=== PATIENT | male | born 1955 | race Caucasian/White ===

== ENCOUNTER 2018-03-08 11:26 | Outpatient (REF) | payer BC, SELFPAY ==
[2018-03-08 21:43] LABS: Abs Immature Grans 0.01 k/cumm (0.0-0.09); Absolute Basophil Count 0.04 k/cumm (0.0-0.2); Absolute Eosinophil Count 0.17 k/cumm (0.0-0.7); Absolute Lymphocyte Count 1.91 k/cumm (1.2-3.4); Absolute Monocyte Count 0.49 k/cumm (0.11-0.7); Absolute Neutrophil Count 3.76 k/cumm (1.2-6.7); Basophils % 0.6; Eosinophils % 2.7; HCT 48.8 % (40.0-50.0); HGB 15.2 g/dL (13.5-17.5); Immature Grans % 0.2; Lymphocytes % 29.9; Mean Corp. HGB Concentration 31.1 g/dL (32.0-36.0); Mean Corpuscular Hemoglobin 28.5 pg (27.0-33.0); Mean Corpuscular Volume 91.4 fL (80-95); Mean Platelet Volume 12.1 fL (8.0-11.0); Monocytes % 7.7; Neutrophils % 58.9; Platelet Count 202 x1000/uL (130-400); RBC 5.34 m/cumm (4.50-6.00); RBC Distribution Width 13.9 % (11.8-14.1); White Blood Cell Count 6.38 k/cumm (4.4-10.8)
[2018-03-08 22:11] LABS: ALT 34 U/L (12-78); AST 18 U/L (15-37); Albumin 3.8 g/dL (3.4-5.0); Alkaline Phosphatase 70 U/L (46-116); Anion Gap 6.6 mmol/L (3-11); BUN 18 mg/dL (7-18); Bilirubin, Total 0.4 mg/dL (0.2-1.0); CO2 31.4 mmol/L (21.0-32.0); CREATININE 1.07 mg/dL (0.70-1.30); Chloride 105 mmol/L (98-107); Cholesterol 149 mg/dL (50-200); Glucose 102 mg/dL (70-100); HDL Cholesterol 39 mg/dL (40-60); LDL CHOLESTEROL 97 mg/dL (<100); Potassium 5.2 mmol/L (3.5-5.1); Sodium 143 mmol/L (136-145); TSH (W/Ref FT4) 1.67 uIU/mL (0.358-3.74); Total Protein 7.1 g/dL (6.4-8.2); Triglyceride 121 mg/dL (30-150)
== END 2018-03-08 11:46 ==
LOC: NCHCN 11:26
PROVIDERS: Visit Provider Family Medicine
DX: I25.10 Atherosclerotic heart disease of native coronary artery without angina pectoris (principal); I50.9 Heart failure, unspecified
CPT/HCPCS: 80053; 80061; 83721; 84443; 85025

== ENCOUNTER 2019-07-19 10:19 | Outpatient (REF) | payer MEDICARE, SELFPAY ==
[2019-07-19 21:50] LABS: Hemoglobin A1C 5.9 % (3.8-5.6)
[2019-07-19 21:54] LABS: ALT 37 U/L (16-63); AST 21 U/L (15-37); Albumin 3.8 g/dL (3.4-5.0); Alkaline Phosphatase 64 U/L (46-116); Anion Gap 6.5 mmol/L (3-11); BUN 17 mg/dL (7-18); Bilirubin, Total 0.5 mg/dL (0.2-1.0); CO2 30.5 mmol/L (21.0-32.0); CREATININE 1.02 mg/dL (0.70-1.30); Calculated LDL 78 mg/dL (<100); Chloride 106 mmol/L (98-107); Cholesterol 142 mg/dL (<200); Glucose 100 mg/dL (74-106); HDL Cholesterol 35 mg/dL (40-60); Potassium 4.5 mmol/L (3.5-5.1); Sodium 143 mmol/L (136-145); Total Protein 6.9 g/dL (6.4-8.2); Triglyceride 145 mg/dL (<150)
== END 2019-07-19 10:39 ==
LOC: NCHCN 10:19
PROVIDERS: Visit Provider Nurse Practitioner Family
DX: E78.5 Hyperlipidemia, unspecified (principal); I25.10 Atherosclerotic heart disease of native coronary artery without angina pectoris; R73.09 Other abnormal glucose
CPT/HCPCS: 80053; 80061; 83036

== ENCOUNTER → 2022-04-02 13:33 | Outpatient (CLI) | payer MEDICARE, BC, SELFPAY ==
--- NOTE | 2022-04-02 13:44 | DI.RAD_ITS ---
Exam(s) XR KNEE RT 3V AP,LAT,ROMEO EXAM: XR KNEE RT 3V AP,LAT,ROMEO CLINICAL HISTORY: PAIN IN RT KNEE-M25.561 TECHNIQUE: COMPARISON: No exams were available for comparison FINDINGS: Three views were obtained. There is loss of the cartilaginous joint space of the medial tibiofemoral joint, moderate to severe period otherwise the cartilaginous joint spaces appear fairly well main[place] erick. There appears to be small knee joint effusion. Bones appear intact except for prominent superi or patellar enthesophyte IMPRESSION: Degenerative changes as described above. RADIATION DOSE DELIVERED: Total DLP
== END ==
PROVIDERS: Visit Provider Physician Assistant Medical
DX: M17.11 Unilateral primary osteoarthritis, right knee (principal)
CPT/HCPCS: 73562

== ENCOUNTER → 2022-04-22 03:01 | Outpatient (CLI) | payer MEDICARE, BC, SELFPAY ==
--- NOTE | 2022-04-22 11:15 | DI.US_ITS ---
Exam(s) US SOFT TISSUE EXTREMITY EXAM: US SOFT TISSUE EXTREMITY CLINICAL HISTORY: RT KNEE PAIN, M25.561; EVALUATE FOR BERGER'S CYST. TECHNIQUE: Ultrasound was performed using standard protocol. COMPARISON: No exams were available for comparison FINDINGS: Dedicated ultrasound examination of the popliteal fossa right knee was performed. No evidence of solid mass and no Berger's cyst evident. IMPRESSION: No significant focal ultrasound findings in the right popliteal fossa. DATA REPOSITORY:
== END ==
PROVIDERS: Visit Provider Physician Assistant Medical
DX: M25.561 Pain in right knee (principal)
CPT/HCPCS: 76881

== ENCOUNTER → 2022-05-12 15:56 | Outpatient (BNVA) | payer MEDICARE, BC, SELFPAY | PROVIDERS: Visit Provider Physician Assistant | DX: S89.91XA Unspecified injury of right lower leg, initial encounter (principal); W54.8XXA Other contact with dog, initial encounter; M23.91 Unspecified internal derangement of right knee | CPT/HCPCS: 20610; J1040 ==

== ENCOUNTER 2022-07-22 06:38 | Emergency (ER) | payer MEDICARE, BC, SELFPAY ==
[2022-07-22 06:41] VITALS: BP 168/97; PULSE 82; RESP 24; TEMP 36.5; O2SAT 97
--- NOTE | 2022-07-22 06:54 | ED.GENADUL_ITS ---
Discharge Plan Disposition Condition: Stable Discharge Details Chief Complaint: Sorethroat Primary Care Provider: [facility] ED Provider: Brandon Alas Home Meds and New Rx's Prescriptions: No Action aspirin [Adult Low Dose Aspirin] 81 mg tablet,delayed release (DR/EC) 81 mg PO DAILY ibuprofen 400 mg tablet 400 mg PO Q8H lisinopril 5 mg tablet 5 mg PO DAILY atorvastatin [Lipitor] 40 mg tablet 40 mg PO DAILY Medical Decision Making 66 yo male with hx of htn, hld, who comes in with 1 days of left sided neck pain and swelling. HE saw his dentist yesterday and was put on amoxicillin and was told he likely had a blocked salivary gland. He came here today because he feels the swelling is worse and when he lays flat feels like has dyspnea. He denies difficulty swallowing and during exam he appears well in no distress speaking clearly and swallowing normally. He does have swelling of the left sumandibular area. No restricted neck movements, no erythema or warmth, no visible abscess in the mouth and midline posterior pharynx. Given worsening symptoms despite being on amoxicillin will proceed with imaging to asses for abscess. Will give a dose of dexamethasone as well while imaging pending pt signed out to oncoming provider pending ct results Differential Diagnosis Differential Diagnosis: sialadenitis, abscess HPI General Mode of arrival: ambulatory . Date/Time Provider Initiated Documentation: 07/22/22 06:39 . Limitations to Documentation: no limitations . Information obtained by: patient . History of Present Illness 66 year old M presents to the emergency department with the chief complaint of left neck swelling, described as moderate, Patient started experiencing this day(s) (1) and it has been constant. Patient did receive the following treatments prior to arrival, none Related Data Home Medications Medication Instructions Recorded Confirmed atorvastatin 40 mg tablet (Lipitor) 40 mg PO DAILY 04/29/22 05/14/22 lisinopril 5 mg tablet 5 mg PO DAILY 04/29/22 05/14/22 aspirin 81 mg tablet,delayed 81 mg PO DAILY 05/12/22 05/14/22 release (Adult Low Dose Aspirin) ibuprofen 400 mg tablet 400 mg PO Q8H 05/12/22 05/14/22 Allergies Allergy/AdvReac Type Severity Reaction Status Date / Time No Known Allergies Allergy Verified 04/29/22 11:50 General Stated Complaint: Sorethroat TOY: 4 Review of Systems All systems reviewed & are unremarkable except as noted in HPI and below Constitutional Constitutional: Denies chills ENT Ears, Nose, Mouth, and Throat: Denies change in voice Cardiovascular Cardiovascular: Denies chest pain and Denies dyspnea Respiratory Respiratory: Denies cough and Denies dyspnea Gastrointestinal Gastrointestinal: Denies abdominal pain, Denies nausea and Denies vomiting Musculoskeletal Musculoskeletal: Denies joint swelling Psychiatric Psychiatric: Denies depression PFSH All Active Problems (Updated 05/14/22 @ 06:27 by Emanuel Hill MD) Internal derangement of right knee (Acute) BERENICE (obstructive sleep apnea) (Chronic) CHF (congestive heart failure) (Chronic) Hyperlipidemia (Acute) CAD (coronary artery disease) (Chronic) Medical History Basal cell carcinoma Former smoker Surgical History History of heart artery stent Social History Smoking risk assessment performed?: No Exam Const General: no acute distress Orientation: alert HENID Head: normal to inspection Ears: external ears normal General nose exam: external nose normal Mouth: moist mucous membranes Eyes General: appearance normal, both eyes and all related structures Neck Neck: full ROM, meningismus present and trachea midline Resp Effort & Inspection: normal respiratory effort and able to speak in complete sentences Cardio Rate: regular rate Skin General skin exam: no rashes or lesions noted Neuro General: patient alert and patient oriented x3 Extrem General: normal to inspection Psych Mental Status: mental status grossly normal Course Vital Signs Vital signs: Vital Signs Temperature 36.5 C 07/22/22 06:41 Pulse 82 07/22/22 06:41 Respiratory Rate 24 07/22/22 06:41 Blood Pressure 168/97 H 07/22/22 06:41 Pulse Oximetry 97 07/22/22 06:41 Temperature 36.5 C 07/22/22 06:41 Temperature Source Oral 07/22/22 06:41 Pulse 82 07/22/22 06:41 Respiratory Rate 24 07/22/22 06:41 Blood Pressure 168/97 H 07/22/22 06:41 Pulse Oximetry 97 07/22/22 06:41 Oxygen Delivery Method Room Air 07/22/22 06:41 Oxygen Flow Rate 0 07/22/22 06:41
[2022-07-22 08:07] LABS: COVID-19 PCR Negative (Negative); Influenza A PCR Negative (Negative); Influenza B PCR Negative (Negative); RSV PCR Negative (Negative)
[2022-07-22 08:09] LABS: Source Nasopharynx
[2022-07-22] MEDS: Normal Saline 1,000 ML 1000 ML IV (08:38)
[2022-07-22] MEDS: Dexamethasone 10 MG/ML VIAL IVP (08:38)
[2022-07-22 08:46] LABS: Abs Immature Grans 0.04 10^3/uL (0.0-0.06); Absolute Eosinophil Count 0.07 10^3/uL (0.0-0.7); Absolute Lymphocyte Count 1.31 10^3/uL (1.2-3.4); Absolute Monocyte Count 0.93 10^3/uL (0.1-0.8); Basophils % 0.3; Eosinophils % 0.6; HCT 43.5 % (40.0-50.0); Immature Grans % 0.3; Lymphocytes % 11.3; MCHC 32.2 % (32.0-36.0); MCV 90 fL (80-95); MPV 11.1 fL (8.0-11.0); Neutrophils % 79.5; Platelet Count 213 10^3/uL (130-400); RBC 4.82 10^6/uL (4.36-5.78); RDW 13.2 % (11.8-14.1); RDW-SD 43.1 fL; WBC 11.57 10^3/uL (4.4-10.8)
[2022-07-22 08:49] LABS: Absolute Basophil Count 0.03 10^3/uL (0.0-0.2)
[2022-07-22 09:06] LABS: ALT 23 U/L (16-63); AST 17 U/L (15-37); Albumin 3.9 g/dL (3.4-5.0); Alkaline Phosphatase 66 U/L (46-116); Anion Gap 5.9 mmol/L (3-11); BUN 16 mg/dL (7-18); Bilirubin, Total 0.7 mg/dL (0.2-1.0); CO2 29.1 mmol/L (21.0-32.0); Calcium 9.1 mg/dL (8.5-10.1); Chloride 105 mmol/L (98-107); Estimated GFR 81.98 (mL/min/1.73m2); Glucose 114 mg/dL (74-106); Potassium 4.1 mmol/L (3.5-5.1); Sodium 140 mmol/L (136-145); Total Protein 7.5 g/dL (6.4-8.2)
[2022-07-22] MEDS: Omnipaque 350 MG/ML 500 ML BTL-Imaging package IJ (09:30)
[2022-07-22] MEDS: Normal Saline - Diluent 50 ML VIAL IJ (09:30)
--- NOTE | 2022-07-22 09:40 | DI.CT_ITS ---
Exam(s) CT NECK W EXAM: CT NECK W INDICATION: left sided neck swelling/pain. COMPARISON: No exams were available for comparison TECHNIQUE: FINDINGS: VISUALIZED PARANASAL SINUSES: Mild mucosal thickening in the maxillary sinuses. No fluid levels. NASOPHARYNX: Unremarkable ORODENTAL: No obvious abnormality OROPHARYNX: x there is a peripherally enhancing abscess in left side of the oropharynx-tonsillar erik on. This measures approximately 2 x 2 cm. Uvula appears somewhat swollen. HYPOPHARYNX: Unremarkable. Valleculae and epiglottis and aryepiglottic folds appear normal. VOCAL CORDS: Unremarkable. No masses evident. Subglottic airway appears unremarkable. THYROID GLAND: Unremarkable. Normal size and no obvious nodules. SALIVARY GLANDS: Unremarkable. No significant findings in the parotid and submandibular glands. LYMPH NODES: There few slightly enlarged lymph nodes in left side of the neck. OTHER: VISUALIZED LUNG APICES: No significant findings. IMPRESSION: 1. There is a ring enhancing finding in the region of left pharyngeal tonsil consistent with tonsill ar abscess. There is some surrounding soft tissue swelling and there few slightly enlarged lymph nod es in the upper left neck. Report called by myself to ER provider. RADIATION DOSE DELIVERED: 532.53mGy.cm Total DLP 532.53mGy.cm Total DLP DATA REPOSITORY: All CT scans at this facility are submitted to the National Radiology Data Registry (NRDR) Dose Index Registry (DIR) with the [employer] ([employer]). RADIATION OPTIMIZATION: All CT scans at this facility use at least one of these dose optimization te chniques: automated exposure control; mA and/or kV adjustment per patient size (includes targeted exa ms where dose is matched to clinical indication); or iterative reconstruction.
--- NOTE | 2022-07-22 10:09 | W.EDPROG ---
Date of service: 07/22/22 Time of Service: 10:09 Medical Decision Making I assumed care of this 66-year-old gentleman from my colleague Dr. Alas, please see his initial HPI and examination. At time of signout awaiting laboratory values and a CT of the neck for further evaluation of his discomfort. White blood cell count of 11.57, absolute neutrophils 9.20, electrolytes unremarkable, glucose 114, flu, RSV, COVID-negative. CT imaging reveals a left-sided tonsillar abscess. Case discussed with Dr. Patel, ENT. Plan to provide IV Unasyn. Dr. Patel at bedside, personally evaluated the patient. Patient appears well, nontoxic, no evidence of trismus or airway compromise. Managing secretions without difficulty. Plan to provide p.o. Augmentin and have the patient return to the ER in 24 hours for reevaluation and if worsening then likely will need to involve ENT once again for potential I&D. Patient and family are comfortable with this plan. Standard discharge and return precautions were provided. Patient understands, is agreeable to this plan, and has no additional questions or concerns upon discharge. This documentation was generated using [employer] system, please disregard any oddities of phrase or misspellings. Medical Records Medical records reviewed: Yes I reviewed the patient's medical records. Imaging Data Radiologic Study: Attestation: I personally reviewed and interpreted this imaging study as follows: Imaging: CT Scan Radiologist's impression: Exam(s) CT NECK W EXAM: CT NECK W INDICATION: left sided neck swelling/pain. COMPARISON: No exams were available for comparison TECHNIQUE: FINDINGS: VISUALIZED PARANASAL SINUSES: Mild mucosal thickening in the maxillary sinuses. No fluid levels. NASOPHARYNX: Unremarkable ORODENTAL: No obvious abnormality OROPHARYNX: x there is a peripherally enhancing abscess in left side of the oropharynx-tonsillar region. This measures approximately 2 x 2 cm. Uvula appears somewhat swollen. HYPOPHARYNX: Unremarkable. Valleculae and epiglottis and aryepiglottic folds appear normal. VOCAL CORDS: Unremarkable. No masses evident. Subglottic airway appears unremarkable. THYROID GLAND: Unremarkable. Normal size and no obvious nodules. SALIVARY GLANDS: Unremarkable. No significant findings in the parotid and submandibular glands. LYMPH NODES: There few slightly enlarged lymph nodes in left side of the neck. OTHER: VISUALIZED LUNG APICES: No significant findings. IMPRESSION: 1. There is a ring enhancing finding in the region of left pharyngeal tonsil consistent with tonsillar abscess. There is some surrounding soft tissue swelling and there few slightly enlarged lymph nodes in the upper left neck. Lab Data Lab results reviewed: Yes I reviewed the patient's lab results. Labs: Laboratory Tests Range/Units 07/22/22 07/22/22 07/22/22 07:22 08:35 08:35 WBC (4.4-10.8) 10^3/uL 11.57 H RBC (4.36-5.78) 10^6/uL 4.82 Hgb (13.5-17.5) g/dL 14.0 Hct (40.0-50.0) % 43.5 MCV (80-95) fL 90 MCH (27.0-33.0) pg 29.0 MCHC (32.0-36.0) % 32.2 RDW (11.8-14.1) % 13.2 Plt Count (130-400) 10^3/uL 213 MPV (8.0-11.0) fL 11.1 H Immature Gran % 0.3 Neutrophils % 79.5 Lymphocytes % 11.3 Monocytes % 8.0 Eosinophils % 0.6 Basophils % 0.3 Nucleated RBC % (0.0-0.3) % 0.0 Absolute Neutrophils (1.2-6.7) 10^3/uL 9.20 H Absolute Lymphocytes (1.2-3.4) 10^3/uL 1.31 Absolute Monocytes (0.1-0.8) 10^3/uL 0.93 H Absolute Eosinophils (0.0-0.7) 10^3/uL 0.07 Absolute Basophils (0.0-0.2) 10^3/uL 0.03 Sodium (136-145) mmol/L 140 Potassium (3.5-5.1) mmol/L 4.1 Chloride (98-107) mmol/L 105 Carbon Dioxide (21.0-32.0) mmol/L 29.1 Anion Gap (3-11) mmol/L 5.9 BUN (7-18) mg/dL 16 Creatinine (0.70-1.30) mg/dL 1.0 Est GFR (CKD-EPI 2020) (mL/min/1.73m2) 81.98 Glucose (74-106) mg/dL 114 H Calcium (8.5-10.1) mg/dL 9.1 Total Bilirubin (0.2-1.0) mg/dL 0.7 AST (15-37) U/L 17 ALT (16-63) U/L 23 Alkaline Phosphatase (46-116) U/L 66 Total Protein (6.4-8.2) g/dL 7.5 Albumin (3.4-5.0) g/dL 3.9 COVID-19 Source Nasopharynx SARS-CoV-2 (PCR) (Negative) Negative Influenza Type A (PCR) (Negative) Negative Influenza Type B (PCR) (Negative) Negative RSV (PCR) (Negative) Negative Exam Const General: cooperative, healthy appearing, comfortable and no acute distress Orientation: alert, awake and oriented x3 HENMT Head: normal to inspection, normocephalic and atraumatic Face and sinus: normal facial exam Mouth: oral mucosae normal and moist mucous membranes Teeth and gingiva: dentition normal Other: Left posterior oropharynx, soft palate with ecchymosis, erythema, swelling but no obvious pointing abscess or uvula deviation. No trismus. Airway is patent. Patient speaks in full sentences and manages secretions without difficulty. Eyes General: appearance normal, both eyes and all related structures Conjunctivae: conjunctivae normal Neck Neck: normal visual inspection, full ROM, no meningeal signs, trachea midline, supple, lymphadenopathy left anterior cervical and tender Resp Effort & Inspection: normal respiratory effort and able to speak in complete sentences Auscultation: clear to auscultation bilaterally Cardio Rate: regular rate Rhythm: regular rhythm Skin General skin exam: no rashes or lesions noted Neuro General: patient alert, patient awake, moves all extremities and no focal motor deficits Sensory Exam: no sensory deficits noted Psych Appearance: grossly normal Mental Status: mental status grossly normal Sign Out Sign Out Data: Sign Out Comment: left sided upper neck/submandibular swelling, started on amoxicillin yesterday, pending labs and ct neck Last updated by Brandon Alas MD at 07/22/22 07:13 Discharge Plan Disposition Patient Disposition: Home Condition: Stable Discharge Details Clinical Impression: Abscess of tonsil Primary Care Provider: [facility] ED Provider: Salazar Parker Soldier Meds and New Rx's Prescriptions: New amoxicillin-pot clavulanate 875-125 mg tablet 1 tab PO BID Qty: 20 0RF Continued aspirin [Adult Low Dose Aspirin] 81 mg tablet,delayed release (DR/EC) 81 mg PO DAILY ibuprofen 400 mg tablet 400 mg PO Q8H lisinopril 5 mg tablet 5 mg PO DAILY atorvastatin [Lipitor] 40 mg tablet 40 mg PO DAILY Discharge Instructions Instructions: Peritonsillar Abscess (ED) Additional Instructions: Discontinue amoxicillin and begin taking Augmentin as directed. [id number] Tylenol and/or Motrin as directed for discomfort. Salt water gargles as tolerated. Please watch for new or worsening symptoms and return to the ER as needed. Dr. Patel personally evaluated you here in the ER, would like you to return to the ER in 24 hours for reevaluation. If symptoms are worsening then likely will need to involve ENT once again for I&D. He is hopeful this will resolve with antibiotics and not need any procedure. Referrals: Julio Patel MD [ [facility] STAFF PHYSICIAN] -
[2022-07-22 10:18] VITALS: BP 135/85; PULSE 82; RESP 18; TEMP 35.9; O2SAT 98
[2022-07-22] MEDS: AMPICILLIN/SULBACTAM 3 GM in Normal Saline 100 ML IVPB (11:13)
[2022-07-22 12:04] VITALS: BP 146/82; PULSE 75; RESP 18; TEMP 36.4; O2SAT 98
== END 2022-07-22 12:08 | disposition home or self-care (01) ==
PROVIDERS: Emergency Medicine; Emergency Provider Physician Assistant
DX: J36 Peritonsillar abscess (principal); I50.9 Heart failure, unspecified; Z20.822 Contact with and (suspected) exposure to COVID-19
CPT/HCPCS: 36415; 70491; 80053; 87637; 96361; 96365; 96375; 99284; 85025; J0295; J1100

== ENCOUNTER 2022-07-23 08:37 | Emergency (ER) | payer MEDICARE, BC, SELFPAY ==
[2022-07-23 08:40] VITALS: BP 139/75; PULSE 77; RESP 18; TEMP 36.3; O2SAT 98
--- NOTE | 2022-07-23 09:20 | ED.GENADUL_ITS ---
Discharge Plan Disposition Patient Disposition: Home Condition: Stable Discharge Details Clinical Impression: Abscess of tonsil Primary Care Provider: [facility] ED Provider: Salazar Parker Home Meds and New Rx's Prescriptions: Continued aspirin [Adult Low Dose Aspirin] 81 mg tablet,delayed release (DR/EC) 81 mg PO DAILY ibuprofen 400 mg tablet 400 mg PO Q8H lisinopril 5 mg tablet 5 mg PO DAILY atorvastatin [Lipitor] 40 mg tablet 40 mg PO DAILY amoxicillin-pot clavulanate 875-125 mg tablet 1 tab PO BID Qty: 20 0RF Discharge Instructions Instructions: Peritonsillar Abscess (ED) Additional Instructions: At this time your symptoms do not appear to be any worse. I spoke with ENT, Dr. Patel once again. He recommends that you continue your antibiotics as well as continue your CPAP at night. [id number] medications such as Tylenol and/or Motrin. Salt water gargles and spits as tolerated. Please watch for new or worsening symptoms and return to the ER for any concerns. Lastly, he would like to see you in his office in the next 1-2 weeks, I have placed you on the ENT list to help expedite this process, you may call their office later today or tomorrow to set this up. Referrals: Julio Patel MD [ [facility] STAFF PHYSICIAN] - Medical Decision Making 66-year-old gentleman who was seen in the ER yesterday, evaluated by ENT, initiated IV Unasyn and p.o. Augmentin. Early tonsillar abscess versus phlegmon with localized edema. Patient received IV steroids prior to my excepting care of the patient yesterday. Dr. Patel, ENT, evaluated the patient, felt as though discharge home was appropriate and recheck in 24 hours. Patient presents now for reevaluation reporting subjective fever has resolved, pain has improved, overall feeling better but did notice additional episodes of difficulty sleeping, apneic episodes with his CPAP. Clinically he appears well, nontoxic, afebrile, no evidence of trismus, airway is patent. Lungs are clear to auscultation, O2 sat 98% on room air. No obvious pointing abscess. Examination is not significantly changed when compared to yesterday. Case discussed with ENT, Dr. Patel. He does not believe that an I&D is necessary. Recommends continuing Augmentin oral therapy as well as CPAP at night. We will follow the patient in his office in the next 1-2 weeks, ENT referral placed. Patient to return to the ER for new or worsening symptoms with the understanding that worsening abscess could develop which may require procedure. Strict discharge and return precautions were provided. Patient understands, is agreeable to this plan, and has no additional questions or concerns upon discharge. This documentation was generated using [employer] dictation system, please disregard any oddities of phrase or misspellings. Medical Records Medical records reviewed: Yes I reviewed the patient's medical records. HPI General Mode of arrival: ambulatory . Date/Time Provider Initiated Documentation: 07/23/22 08:58 . Limitations to Documentation: no limitations . Information obtained by: patient . HPI Narrative: This is a 66-year-old gentleman with a Diana history of CAD, hyperlipidemia, CHF, sleep apnea, wears CPAP at night, was seen in the ER yesterday for evaluation of potential tonsillar abscess, per ENT consultation, recommended reevaluation in 24 hours. Overall patient reports that his symptoms have improved. He reports that he no longer subjectively has a fever and he feels like his overall discomfort in his throat is much improved. He has no difficulty speaking, breathing, managing his own secretions. He does state that overnight while using his CPAP he feels as though he is having more apneic episodes, this was confirmed by his CPAP machine data. He was given IV Unasyn yesterday and initiated on Augmentin. Related Data Home Medications Medication Instructions Recorded Confirmed atorvastatin 40 mg tablet (Lipitor) 40 mg PO DAILY 04/29/22 07/23/22 lisinopril 5 mg tablet 5 mg PO DAILY 04/29/22 07/23/22 aspirin 81 mg tablet,delayed 81 mg PO DAILY 05/12/22 07/23/22 release (Adult Low Dose Aspirin) ibuprofen 400 mg tablet 400 mg PO Q8H 05/12/22 07/23/22 amoxicillin 875 mg-potassium 1 tab PO BID #20 tabs 07/22/22 07/23/22 clavulanate 125 mg tablet Previous Rx's Medication Instructions Recorded amoxicillin 875 mg-potassium 1 tab PO BID #20 tabs 07/22/22 clavulanate 125 mg tablet Allergies Allergy/AdvReac Type Severity Reaction Status Date / Time No Known Allergies Allergy Verified 07/23/22 08:45 General Stated Complaint: Recheck TOY: 3 Review of Systems Constitutional Constitutional: Denies fever(s) and Denies weakness ENT Ears, Nose, Mouth, and Throat: Denies neck pain and Reports throat swelling Cardiovascular Cardiovascular: Denies chest pain and Denies dyspnea Respiratory Respiratory: Denies cough and Denies dyspnea Musculoskeletal Musculoskeletal: Denies neck pain Integumentary/Breasts Skin/Breast: Denies rash Neurologic Neurologic: Denies weakness Allergic/Immunologic Allergic/Immunologic: Reports throat swelling PFSH All Active Problems Abscess of tonsil (Acute) Internal derangement of right knee (Acute) BERENICE (obstructive sleep apnea) (Chronic) CHF (congestive heart failure) (Chronic) Hyperlipidemia (Acute) CAD (coronary artery disease) (Chronic) Medical History Basal cell carcinoma Former smoker Surgical History History of heart artery stent Social History Smoking/Tobacco Use Status: Never Smoking risk assessment performed?: Yes Alcohol Intake: current Alcohol Intake frequency: holidays/special occasions only Drug use: Never Substance use type: does not use Do you feel safe at home: Yes Do you feel safe in your relationship?: Yes Exam Const General: cooperative, healthy appearing, comfortable and no acute distress Orientation: alert, awake and oriented x3 HENMT Head: normal to inspection, normocephalic and atraumatic Face and sinus: normal facial exam Mouth: oral mucosae normal and moist mucous membranes Other: Left-sided oropharynx, soft palate with minimal erythema and fullness as well as ecchymosis. There is no uvular midline shift or airway compromise. No evidence of pointing abscess. No trismus Eyes General: appearance normal, both eyes and all related structures Conjunctivae: conjunctivae normal Neck Neck: normal visual inspection, full ROM, no meningeal signs, trachea midline, supple, lymphadenopathy left anterior cervical and tender (Minimal left anterior lymphadenopathy) Resp Effort & Inspection: normal respiratory effort and able to speak in complete sentences Auscultation: clear to auscultation bilaterally Cardio Rate: regular rate Rhythm: regular rhythm Skin General skin exam: no rashes or lesions noted Neuro General: patient alert, patient awake, moves all extremities and no focal motor deficits Cognition: normal cognition Speech: speech normal Gait: normal gait Sensory Exam: no sensory deficits noted Psych Appearance: grossly normal Mental Status: mental status grossly normal Course Vital Signs Vital signs: Vital Signs Temperature 36.3 C L 07/23/22 08:40 Pulse 77 07/23/22 08:40 Respiratory Rate 18 07/23/22 08:40 Blood Pressure 139/75 07/23/22 08:40 Pulse Oximetry 98 07/23/22 08:40 Temperature 36.3 C L 07/23/22 08:40 Temperature Source Tympanic 07/23/22 08:40 Pulse 77 07/23/22 08:40 Respiratory Rate 18 07/23/22 08:40 Respiratory Effort Normal 07/23/22 08:43 Blood Pressure 139/75 07/23/22 08:40 Blood Pressure Position Sitting 07/23/22 08:40 Pulse Oximetry 98 07/23/22 08:40 Oxygen Delivery Method Room Air 07/23/22 08:40 Oxygen Flow Rate 0 07/23/22 08:40 Pain Level 1 07/23/22 08:40
[2022-07-23 09:56] VITALS: BP 124/80; PULSE 73; RESP 16; TEMP 36.7; O2SAT 97
--- NOTE | 2022-07-23 15:33 | NUR.NOTE ---
Nursing Note: Referral faxed to [facility] ENT for follow up for abscess in 2 weeks.
== END 2022-07-23 09:57 | disposition home or self-care (01) ==
PROVIDERS: Emergency Provider Physician Assistant
DX: J36 Peritonsillar abscess (principal)
CPT/HCPCS: 99281; 99283

== ENCOUNTER 2022-07-23 20:36 | Emergency (ER) | payer MEDICARE, BC, SELFPAY ==
[2022-07-23 20:59] VITALS: BP 141/95; PULSE 91; RESP 16; TEMP 36.8; O2SAT 95
--- NOTE | 2022-07-23 21:15 | DI.CT_ITS ---
Exam(s) CT NECK W EXAM: CT NECK W INDICATION: L swelling/pain. COMPARISON: CT CT NECK W from 07/22/2022 TECHNIQUE: IV contrast: Omnipaque-351 hemorrhage or mL intravenous FINDINGS: VISUALIZED PARANASAL SINUSES: Multilevel maxillary polyps or post inflammatory retention cysts. No a ssociated fluid level. Similar finding in the right sphenoid sinus. There is opacification of all o f the right mastoid air cells. Left mastoid air cells are clear. NASOPHARYNX: Unremarkable ORODENTAL: Unremarkable. OROPHARYNX: Previously described abscess in left palatine tonsil has increased in size and there is a lso increasing abnormal swelling right of center in the oropharynx also now evident. Also increasing retropharyngeal tissue swelling. Also some tissue swelling-edema also evident in the nasopharynx, u vula and extending caudally from the oropharynx into the left hypopharynx/puriform sinus region. Als o some extension of edema to involve the left side of the epiglottis and upper left aryepiglottic fol d region. HYPOPHARYNX: Abnormal, as above. VOCAL CORDS: Unremarkable. No masses evident. Subglottic airway appears unremarkable. THYROID GLAND: Unremarkable. Normal size and no obvious nodules. SALIVARY GLANDS: There is some mild sub platysmal fat streaking on the left side, lateral to the left submandibular gland. LYMPH NODES: Mildly enlarged left-sided lymph nodes again noted. OTHER: VISUALIZED LUNG APICES: No significant findings. IMPRESSION: 1. Compared to the CT scan 1 day prior there is now further deterioration with increasing left palat ine tonsil swelling/abscess as well as increasing soft tissue swelling both sides of the oropharynx a nd also involving the hypopharynx as described above. Also some swelling in the nasopharynx tissues. ENT consult recommended. 2. Some streaking in the fat lateral to the left submandibular gland is noted. 3. Paranasal sinus findings as described above and there is also opacification of the mastoid air ce lls on the right side. 4. Mild lymphadenopathy in left side of the neck again noted. First read by [facility]. RADIATION DOSE DELIVERED: 512.02mGy.cm Total DLP 512.02mGy.cm Total DLP DATA REPOSITORY: All CT scans at this facility are submitted to the National Radiology Data Registry (NRDR) Dose Index Registry (DIR) with the [employer] ([employer]). RADIATION OPTIMIZATION: All CT scans at this facility use at least one of these dose optimization te chniques: automated exposure control; mA and/or kV adjustment per patient size (includes targeted exa ms where dose is matched to clinical indication); or iterative reconstruction.
--- NOTE | 2022-07-23 21:31 | ED.GENADUL_ITS ---
Discharge Plan Disposition Patient Disposition: Home Condition: Improving Discharge Details Clinical Impression: Peritonsillar abscess Primary Care Provider: [facility] ED Provider: Adan Rushing Home Meds and New Rx's Prescriptions: Continued aspirin [Adult Low Dose Aspirin] 81 mg tablet,delayed release (DR/EC) 81 mg PO DAILY ibuprofen 400 mg tablet 400 mg PO Q8H lisinopril 5 mg tablet 5 mg PO DAILY atorvastatin [Lipitor] 40 mg tablet 40 mg PO DAILY amoxicillin-pot clavulanate 875-125 mg tablet 1 tab PO BID Qty: 20 0RF Discharge Instructions Instructions: Peritonsillar Abscess (ED) Additional Instructions: Maintain your established follow-up in otolaryngology with Dr. Patel. Continue your antibiotics, next dose tomorrow morning. Small, frequent sips of fluids to maintain hydration. Tylenol and/or ibuprofen as needed for pain. Return if you have difficulty breathing, swallowing, or any other acute concerns. Referrals: Julio Patel MD [[facility] STAFF PHYSICIAN] - Medical Decision Making 66-year-old male who is initially seen on July 22 for a left peritonsillar abscess. He was evaluated by Dr. Patel from otolaryngology. Patient received steroids and was placed on antibiotics. He had a planned recheck yesterday was feeling improved. Today he felt increased swelling and discomfort in the left neck, some hoarseness of voice. He returns now for evaluation of mild nausea that he had subjective fever and chills at home. Upon arrival he is alert, well-appearing, no drooling. He does have evidence of a left peritonsillar abscess. Given the patient's progression of illness, potential need for needle aspiration/drainage, IV access was established, he was given steroids, fluids, acetaminophen and referred for laboratory and CT imaging. Labs showed a white count of 12.9, hematocrit 42, platelets 204. Chemistries are unremarkable. CT images reveal some progression of the known peritonsillar abscess, now measuring approximately 12 x 22 x 30 mm. Patient was consented as to the risks and benefits of attempted needle aspiration. Used anesthetized with lidocaine and 5 cc of purulent material were aspirated with an 18-gauge needle. Patient tolerated procedure well. Fluid was sent for culture. He was given Unasyn and observed in the emergency department. HPI General Mode of arrival: ambulatory . Date/Time Provider Initiated Documentation: 07/23/22 21:07 . Limitations to Documentation: no limitations . Information obtained by: patient . History of Present Illness 66 year old M presents to the emergency department with the chief complaint of Left throat swelling, on antibiotics, described as moderate, Quality is described as dull, and is localized to the neck and left. Patient reports no radiation. Patient started experiencing this day(s) and it has been intermittent. No relieving factors improve symptom(s), No exacerbating factors reported . Patient notes fever/chills; denies shortness of breath. Patient did receive the following treatments prior to arrival, other (Antibiotics) Related Data Home Medications Medication Instructions Recorded Confirmed atorvastatin 40 mg tablet (Lipitor) 40 mg PO DAILY 04/29/22 07/23/22 lisinopril 5 mg tablet 5 mg PO DAILY 04/29/22 07/23/22 aspirin 81 mg tablet,delayed 81 mg PO DAILY 05/12/22 07/23/22 release (Adult Low Dose Aspirin) ibuprofen 400 mg tablet 400 mg PO Q8H 05/12/22 07/23/22 amoxicillin 875 mg-potassium 1 tab PO BID #20 tabs 07/22/22 07/23/22 clavulanate 125 mg tablet Previous Rx's Medication Instructions Recorded amoxicillin 875 mg-potassium 1 tab PO BID #20 tabs 07/22/22 clavulanate 125 mg tablet Allergies Allergy/AdvReac Type Severity Reaction Status Date / Time No Known Allergies Allergy Verified 07/23/22 08:45 General Stated Complaint: Fever TOY: 3 Review of Systems Narrative: No drooling. Voice has become slightly worse., No difficulty breathing. 7 systems were reviewed and otherwise negative [facility] All Active Problems (Updated 07/24/22 @ 00:21 by Adan Rushing MD) Abscess of tonsil (Acute) Peritonsillar abscess (Acute) Internal derangement of right knee (Acute) BERENICE (obstructive sleep apnea) (Chronic) CHF (congestive heart failure) (Chronic) Hyperlipidemia (Acute) CAD (coronary artery disease) (Chronic) Medical History Basal cell carcinoma Former smoker Surgical History History of heart artery stent Social History Smoking/Tobacco Use Status: Never Smoking risk assessment performed?: Yes Alcohol Intake: current Alcohol Intake frequency: holidays/special occasions only Drug use: Never Substance use type: does not use Do you feel safe at home: Yes Do you feel safe in your relationship?: Yes Exam Narrative Exam Narrative: GEN: awake, alert, oriented 3. Pleasant, well groomed, interactive. HEAD: Normocephalic, atraumatic ENT: Mucous membranes moist, oropharynx with left peritonsillar edema and prominence, External ear exam unremarkable EYES: PERRL, EOMI NECK: Supple, full ROM, positive CLAUDIA, no menigismus CHEST/RESP: Nontender, clear to auscultation bilateral, no wheeze/rhonchi/rales CARDIOVASCULAR: RRR, no murmur, rub salima. 2+ Rad pulse bilateral EXT: Full ROM, no edema, no rash Neuro: Grossly normal neurologic exam, conversant, interactive. Psych: Speech fluent, thoughts congruent, affect normal Course Vital Signs Vital signs: Vital Signs Temperature 36.8 C 07/23/22 20:59 Pulse 91 H 07/23/22 20:59 Respiratory Rate 16 07/23/22 20:59 Blood Pressure 141/95 H 07/23/22 20:59 Pulse Oximetry 95 07/23/22 20:59 Temperature 36.8 C 07/23/22 20:59 Temperature Source Tympanic 07/23/22 20:59 Pulse 91 H 07/23/22 20:59 Respiratory Rate 16 07/23/22 20:59 Respiratory Effort Normal, Non-Labored 07/23/22 21:06 Blood Pressure 141/95 H 07/23/22 20:59 Blood Pressure Position Sitting 07/23/22 20:59 Pulse Oximetry 95 07/23/22 20:59 Oxygen Delivery Method Room Air 07/23/22 20:59 Oxygen Flow Rate 0 07/23/22 20:59 Pain Level 2 07/23/22 20:59 Procedures Abscess I/D Site: Other (Left. ) Side (if applicable): Left Local Anesthetic: Lidocaine 1% Amount of anesthesia used (mL): 2 Technique: Needle Aspiration Amount of fluid expressed (mL): 5
[2022-07-23] MEDS: Dexamethasone 10 MG/ML VIAL IVP (21:35)
[2022-07-23] MEDS: ACETAMINOPHEN 1,000 MG/100 ML BTL 400 MG IVPB (21:35)
[2022-07-23] MEDS: Normal Saline 1,000 ML 1000 ML IV (21:35)
[2022-07-23 21:50] LABS: Abs Immature Grans 0.05 10^3/uL (0.0-0.06); Absolute Basophil Count 0.03 10^3/uL (0.0-0.2); Absolute Eosinophil Count 0.03 10^3/uL (0.0-0.7); Absolute Lymphocyte Count 1.19 10^3/uL (1.2-3.4); Absolute Monocyte Count 1.08 10^3/uL (0.1-0.8); Basophils % 0.2; Eosinophils % 0.2; HCT 42.5 % (40.0-50.0); HGB 13.7 g/dL (13.5-17.5); Immature Grans % 0.4; Lactate 0.8 mmol/L (0.6-1.4); Lymphocytes % 9.2; MCH 29.2 pg (27.0-33.0); MCHC 32.2 % (32.0-36.0); MCV 91 fL (80-95); Monocytes % 8.3; Neutrophils % 81.7; Platelet Count 204 10^3/uL (130-400); RBC 4.69 10^6/uL (4.36-5.78); RDW 13.4 % (11.8-14.1); RDW-SD 44.6 fL; WBC 12.98 10^3/uL (4.4-10.8)
[2022-07-23 22:01] LABS: Anion Gap 9.6 mmol/L (3-11); BUN 15 mg/dL (7-18); CO2 28.4 mmol/L (21.0-32.0); CREATININE 1.1 mg/dL (0.70-1.30); Calcium 9.2 mg/dL (8.5-10.1); Chloride 104 mmol/L (98-107); Estimated GFR 73.12 (mL/min/1.73m2); Glucose 133 mg/dL (74-106); Potassium 3.9 mmol/L (3.5-5.1); Sodium 142 mmol/L (136-145)
[2022-07-23] MEDS: Normal Saline - Diluent 50 ML VIAL IJ (22:34)
[2022-07-23] MEDS: Normal Saline Flush 10 ML SYR IVP (22:35)
[2022-07-23] MEDS: Omnipaque 350 MG/ML 100 ML BTL IJ (22:35)
--- NOTE | 2022-07-23 23:15 | DI.VRAD_ITS ---
PROCEDURE INFORMATION: Exam: CT Neck With Contrast Exam date and time: 07/23/2022 10:17 PM Age: 66 years old Clinical indication: Abscess, tonsil TECHNIQUE: Imaging protocol: Computed tomography of the neck with contrast. Contrast material: OMNIPAQUE 350; Contrast volume: 100 ml; Contrast route: INTRAVENOUS (IV); COMPARISON: CT NECK W 07/22/2022 9:21 AM FINDINGS: Paranasal sinuses: Multiple nodular structures of the paranasal sinuses may represent mucous retention cysts or polyps. Pharynx: Increased size of the left palatine tonsil as compared to the prior examination. The hypodense collection within the left palatine tonsil is also increased in the interval, measuring 12 x 22 x 30 mm (series 6, image 321 and series 4, image 26). As opposed to the description on the prior examination, this appears ill-defined on the current study without a clear enhancing rim. There is moderate to severe narrowing of the nasopharyngeal airway and moderate narrowing of the oropharyngeal airway. Mucosal edema on the subh-[id number]-tmyy-right involving the nasopharynx, uvula, and oropharynx extending to the left hypopharynx and piriform sinus is increased from the prior examination. Larynx: There is extension of edema to the left epiglottis and glossoepiglottic fold and to the superior margin of the left aryepiglottic fold. Prevertebral and retropharyngeal spaces: Increased prominence of retropharyngeal edema. No retropharyngeal abscess is identified. Salivary glands: Normal. Glands are normal in size. Thyroid: Normal. No enlarged or calcified nodules. Lymph nodes: Vwuu-pakerke-updh-right upper cervical lymphadenopathy is grossly unchanged. Trachea: Visualized trachea is unremarkable. Lungs: Unremarkable as visualized. Bones/joints: Degenerative changes of the cervical spine, with severe spinal canal stenosis at C5-C6 and C6-C7 associated with moderate to severe neural foraminal narrowing. Soft tissues: Left parapharyngeal fat reticular changes, extending to the lateral left lower face and upper neck, is increased as compared to the prior examination with mild thickening of the left platysma muscle. IMPRESSION: 1. Increasing size of hypodense collection of the left palatine tonsil, consistent with organizing phlegmon or early abscess development, with increased surrounding soft tissue swelling extending through the nasopharynx and oropharynx to the right hypopharynx as well as within the deep and superficial soft tissues consistent with infectious or inflammatory change. 2. Increasing prominence of retropharyngeal edema, likely reactive. No evidence of retropharyngeal abscess. 3. Progressive narrowing of the nasopharyngeal and oropharyngeal airway as compared to the prior examination. 4. Severe spinal canal stenosis at C5-C6 and C6-C7. If symptomatic, nonemergent MRI should be considered for further evaluation. Dictated and Authenticated by: Nathen Renteria MD. Ordering:VITA Arellano MD
[2022-07-24] MEDS: AMPICILLIN/SULBACTAM 3 GM in Normal Saline 100 ML IVPB (00:01)
[2022-07-24 00:59] VITALS: BP 131/72; PULSE 73; RESP 18; TEMP 36.6; O2SAT 96
--- NOTE | 2022-07-31 09:55 | NUR.NOTE ---
Nursing Note: Accessed chart to look up whether or not on antibiotic.
== END 2022-07-24 01:02 | disposition home or self-care (01) ==
PROVIDERS: Emergency Provider Emergency Medicine
DX: J36 Peritonsillar abscess (principal); Z79.82 Long term (current) use of aspirin; K12.2 Cellulitis and abscess of mouth
CPT/HCPCS: 10160; 70491; 80048; 87077; 96361; 96365; 96375; 99281; 99285; 83605; 85025; 87070; 87205; 99283; 99284; J0131; J0295; J1100; J3490

== ENCOUNTER 2022-08-12 00:22 | Emergency (ER) | payer MEDICARE, BC, SELFPAY ==
[2022-08-12 00:26] VITALS: BP 160/89; PULSE 73; RESP 18; TEMP 36.3; O2SAT 97
--- NOTE | 2022-08-12 00:50 | ED.GENADUL_ITS ---
Discharge Plan Disposition Patient Disposition: Home Condition: Good Discharge Details Clinical Impression: Pain in throat Primary Care Provider: [facility] ED Provider: Babak Alvarado Home Meds and New Rx's Prescriptions: New loratadine 10 mg capsule 10 mg PO DAILY Qty: 10 0RF Continued aspirin [Adult Low Dose Aspirin] 81 mg tablet,delayed release (DR/EC) 81 mg PO DAILY ibuprofen 400 mg tablet 400 mg PO Q8H lisinopril 5 mg tablet 5 mg PO DAILY atorvastatin [Lipitor] 40 mg tablet 40 mg PO DAILY Discontinued amoxicillin-pot clavulanate 875-125 mg tablet 1 tab PO BID Qty: 20 0RF Discharge Instructions Additional Instructions: At this time I see no evidence of tonsillitis, peritonsillar abscess, mass on the tongue, or other significant abnormality. Please take the loratadine as directed. Please follow-up closely with your scheduled appointment with Dr. Patel this week. If you notice any worsening of your symptoms, or any new symptoms such as vomiting, diarrhea, fever, chills, shortness of breath, chest pain, numbness, weakness, or fainting , please return immediately to the emergency department for reevaluation. Please follow up with your primary care provider as soon as possible for reassessment and reevaluation. As always, it was a pleasure participating in your medical care today. Referrals: [facility] [Primary Care Provider] - Julio Patel MD [ [facility] STAFF PHYSICIAN] - Medical Decision Making This is a 66-year-old male with a past medical history of coronary artery disease, congestive heart failure, obstructive sleep apnea on CPAP, with a recent left peritonsillar abscess that was incised and drained about 3-1/2 weeks ago on 07/23/2022. He subsequently had a complete course of Augmentin, and then has had follow-up with ENT/Dr. Patel which showed resolution of the abscess. However over the last 2-3 nights he has had mild achiness in his right posterior oropharynx, and is also noticed a slight increase in the amount of secretions at night with his CPAP. He denies any fever or chills. He denies any feelings of significant swelling in the back of his throat. He denies any difficulty swallowing or controlling his secretions. No other complaints at this time. No other modifying factors. Exam demonstrates a notably unremarkable posterior oropharynx. Tonsils are nearly absent in size, no exudate, edema, redness, cobblestoning or other abnormalities whatsoever. Digital examination of the posterior oropharynx after anesthetization demonstrates no evidence of peritonsillar abscess, mass on the tongue that I can appreciate, or other abnormality. No signs of Ludewig's angina whatsoever. For that matter no significant lymphadenopathy either. I am uncertain as to what the achiness is being caused by in the patient's right posterior oropharynx, however there is no evidence of carotid bruits, or other significant abnormalities. With a very reassuring and unremarkable exam at this time both clinically and objectively I do not see any indication for further emergent imaging. I did discuss risks and benefits of additional CT imaging and patient would also like to hold off for the time being. We will prescribe loratadine for treatment of the hyper secretions. Patient is following up in [address] Patel at his scheduled appointment. We will recommend following closely with this. Otherwise patient stable for discharge. Discussed red flags for which to return. I have extensively reviewed the treatment plan and discharge instructions with the patient. I have addressed all patient concerns at this time. The patient was made aware of what symptoms to monitor for that would warrant a return to the emergency department. Discussed the plan with the patient, they demonstrate verbal understanding and agreement with our assessment and plan at this time. The documentation in this chart was dictated using [email or web address] dictation software. Please excuse any dictation errors. HPI General Date/Time Provider Initiated Documentation: 08/12/22 00:27 . HPI Narrative: This is a 66-year-old male with a past medical history of coronary artery disease, congestive heart failure, obstructive sleep apnea on CPAP, with a recent left peritonsillar abscess that was incised and drained about 3-1/2 weeks ago on 07/23/2022. He subsequently had a complete course of Augmentin, and then has had follow-up with ENT/Dr. Patel which showed resolution of the abscess. However over the last 2-3 nights he has had mild achiness in his right posterior oropharynx, and is also noticed a slight increase in the amount of secretions at night with his CPAP. He denies any fever or chills. He denies any feelings of significant swelling in the back of his throat. He denies any difficulty swallowing or controlling his secretions. No other complaints at this time. No other modifying factors. Related Data Home Medications Medication Instructions Recorded Confirmed atorvastatin 40 mg tablet (Lipitor) 40 mg PO DAILY 04/29/22 07/28/22 lisinopril 5 mg tablet 5 mg PO DAILY 04/29/22 07/28/22 aspirin 81 mg tablet,delayed 81 mg PO DAILY 05/12/22 07/28/22 release (Adult Low Dose Aspirin) ibuprofen 400 mg tablet 400 mg PO Q8H 05/12/22 07/28/22 loratadine 10 mg capsule 10 mg PO DAILY #10 caps 08/12/22 Previous Rx's Medication Instructions Recorded loratadine 10 mg capsule 10 mg PO DAILY #10 caps 08/12/22 Allergies Allergy/AdvReac Type Severity Reaction Status Date / Time No Known Allergies Allergy Verified 07/28/22 14:14 General Stated Complaint: DentalOral TOY: 3 Review of Systems All systems reviewed & are unremarkable except as noted in HPI and below PFSH All Active Problems Pain in throat (Acute) Abscess of tonsil (Acute) Peritonsillar abscess (Acute) Internal derangement of right knee (Acute) BERENICE (obstructive sleep apnea) (Chronic) CHF (congestive heart failure) (Chronic) Hyperlipidemia (Acute) CAD (coronary artery disease) (Chronic) Medical History Basal cell carcinoma Former smoker Surgical History History of heart artery stent Social History Smoking/Tobacco Use Status: Never Smoking risk assessment performed?: Yes Alcohol Intake: current Alcohol Intake frequency: holidays/special occasions only Drug use: Never Substance use type: does not use Do you feel safe at home: Yes Do you feel safe in your relationship?: Yes Exam Narrative Exam Narrative: 1.Const: Well-nourished, Well-developed, appearing stated age 2.Eyes: PERRL, no conjunctival injection, and symmetrical lids. 3.ENT: Atraumatic external nose and ears. Moist MM. Neck: Symmetric, trachea midline, No thyromegaly. Visual inspection of the posterior oropharynx shows no enlargement swelling or redness of the tonsils whatsoever. For that matter they are notably small and diminished. Uvula is midline. No cobblestoning in the posterior oropharynx. No signs of redness or swelling. Palpation of the posterior oropharynx with my finger demonstrates no swelling or mass. Palpation of the tongue on the lateral and posterior aspects after anesthetization with benzocaine demonstrates no atypical lesions that I can palpate or visualize. No evidence of stridor, Ludewig's angina, or significant lymphadenopathy. 4.CVS: +S1/S2, No murmurs or gallops. Peripheral pulses 2+ and equal in all extremities. Brisk capillary refill in all extremities. 5.RESP: Unlabored respiratory effort. Clear to auscultation bilaterally. No wheezes rales or rhonchi 6.GI: Soft, Nontender/Nondistended, No hepatosplenomegaly. No guarding or rebound. 7.MSK: Normocephalic/Atraumatic, Extremities w/o deformity or ttp No cyanosis or clubbing, Normal movement of all extremities 8.Skin: Warm, Dry. No rashes or lesions. 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 Sensation grossly intact, no focal neurologic deficits. 10.Psych: (AAO) x3. Appropriate mood and affect Course Vital Signs Vital signs: Vital Signs Temperature 36.3 C L 08/12/22 00:26 Pulse 73 08/12/22 00:26 Respiratory Rate 18 08/12/22 00:26 Blood Pressure 160/89 H 08/12/22 00:26 Pulse Oximetry 97 08/12/22 00:26 Temperature 36.3 C L 08/12/22 00:26 Temperature Source Oral 08/12/22 00:26 Pulse 73 08/12/22 00:26 Respiratory Rate 18 08/12/22 00:26 Respiratory Effort Normal, Non-Labored 08/12/22 00:31 Blood Pressure 160/89 H 08/12/22 00:26 Blood Pressure Position Sitting 08/12/22 00:26 Pulse Oximetry 97 08/12/22 00:26 Oxygen Delivery Method Room Air 08/12/22 00:26 Oxygen Flow Rate 0 08/12/22 00:26 Pain Level 1 08/12/22 00:31
[2022-08-12] MEDS: Loratidine 10 MG TAB PO (01:00)
[2022-08-12] MEDS: Acetaminophen 500 MG TAB 1000 MG PO (01:00)
--- NOTE | 2022-08-12 16:00 | NUR.NOTE ---
Nursing Note: Caitlyn Carter called asking if the capsules of Claritan could be changed to tablets. Insurance will pay for the tablets. Per Dr. Gomez yes that can be changed.
== END 2022-08-12 01:08 | disposition home or self-care (01) ==
PROVIDERS: Emergency Provider Student in an Organized Health Care Education/Training Program
DX: R07.0 Pain in throat (principal)
CPT/HCPCS: 99283

== ENCOUNTER 2023-09-15 13:32 | Outpatient (REF) | payer MEDICARE, BC, SELFPAY ==
[2023-09-15 21:17] LABS: Abs Immature Grans 0.01 10^3/uL (0.0-0.06); Absolute Basophil Count 0.04 10^3/uL (0.0-0.2); Absolute Lymphocyte Count 1.36 10^3/uL (1.2-3.4); Absolute Monocyte Count 0.47 10^3/uL (0.1-0.8); Absolute Neutrophil Count 3.68 10^3/uL (1.2-6.7); Basophils % 0.7; Eosinophils % 1.8; HCT 45.3 % (40.0-50.0); HGB 14.2 g/dL (13.5-17.5); Immature Grans % 0.2; MCHC 31.3 % (32.0-36.0); MCV 93 fL (80-95); MPV 12.2 fL (8.0-11.0); Monocytes % 8.3; Platelet Count 218 10^3/uL (130-400); RBC 4.89 10^6/uL (4.36-5.78); RDW 13.2 % (11.8-14.1); RDW-SD 44.9 fL; WBC 5.66 10^3/uL (4.4-10.8)
[2023-09-15 21:36] LABS: ALT 32 U/L (16-63); AST 25 U/L (15-37); Albumin 3.8 g/dL (3.4-5.0); Alkaline Phosphatase 70 U/L (46-116); Anion Gap 6.2 mmol/L (3-11); BUN 15 mg/dL (7-18); Bilirubin, Total 0.6 mg/dL (0.2-1.0); CO2 28.8 mmol/L (21.0-32.0); CREATININE 1.1 mg/dL (0.70-1.30); Calcium 8.9 mg/dL (8.5-10.1); Chloride 106 mmol/L (98-107); Estimated GFR 72.67 (mL/min/1.73m2); Glucose 104 mg/dL (74-106); Lipase 29 U/L (16-77); Potassium 4.4 mmol/L (3.5-5.1); Sodium 141 mmol/L (136-145); Total Protein 7.4 g/dL (6.4-8.2)
== END 2023-09-15 13:33 | disposition home or self-care (01) ==
LOC: NCHCN 13:32
PROVIDERS: PCP Physician Assistant; Visit Provider Physician Assistant
DX: R10.9 Unspecified abdominal pain (principal)
CPT/HCPCS: 80053; 83690; 85025

== ENCOUNTER 2023-10-07 19:11 | Outpatient (REF) | payer MEDICARE, BC, SELFPAY ==
[2023-10-13 12:40] LABS: Helicobacter pylori Ag, Feces Negative (Negative)
== END 2023-10-07 19:12 | disposition home or self-care (01) ==
LOC: NCHCN 19:11
PROVIDERS: PCP Physician Assistant; Visit Provider Family Medicine
DX: R10.13 Epigastric pain (principal)
CPT/HCPCS: 87338

== ENCOUNTER → 2023-11-05 11:45 | Outpatient (BNVA) | payer MEDICARE, BC, SELFPAY | PROVIDERS: PCP Family Medicine; Referring Provider Family Medicine; Visit Provider Physical Therapy Assistant | DX: Z12.11 Encounter for screening for malignant neoplasm of colon (principal) ==

== ENCOUNTER 2023-11-10 06:58 | Day surgery (SDC) | payer MEDICARE, BC, SELFPAY ==
[2023-11-10 07:30] VITALS: BP 112/77; PULSE 68; RESP 16; TEMP 36.1; O2SAT 98
--- NOTE | 2023-11-10 07:50 | W.ANESPRE ---
General Info Date of Service Date Performed: 11/10/23 Height: 5 ft 9 in Weight: 108.5 kg Body Mass Index (BMI): 35.3 Surgical Procedure: Operation Date: 11/10/23 08:20 Proposed Procedure Side Surgeon carlos Lewis MD Meds Allergies and Home Medications Allergies Allergy/AdvReac Type Severity Reaction Status Date / Time No Known Allergies Allergy Verified 11/10/23 07:35 Home Medication Medication Instructions Recorded atorvastatin 40 mg tablet (Lipitor) 40 mg PO DAILY 04/29/22 lisinopril 5 mg tablet 5 mg PO DAILY 04/29/22 aspirin 81 mg tablet,delayed 81 mg PO DAILY 05/12/22 release (Adult Low Dose Aspirin) ibuprofen 400 mg tablet 400 mg PO Q8H 05/12/22 latanoprost 0.005 % eye drops 1 drp ophthalmic (eye) QPM 10/23/23 bisacodyl 5 mg tablet,delayed 5 mg PO ONCE #4 tabs 11/05/23 release (Dulcolax (bisacodyl)) omeprazole 20 mg tablet,delayed 20 mg PO DAILY 11/05/23 release polyethylene glycol 3350 17 17 g PO ONCE #238 grams 11/05/23 gram/dose oral powder Current Visit Medications: Current Medications Generic Name Dose Route Start Last Admin Trade Name Freq PRN Reason Stop Dose Admin Ringer's Solution 1,000 mls @ 80 mls/hr 11/10/23 06:00 IV 11/10/23 23:59 INFUSION HIMA IV Miscellaneous Supplies 1 each 11/10/23 06:00 Iv Access IV 11/10/23 23:59 DIRECTED HIMA Sodium Chloride 0 ml 11/10/23 06:00 Normal Saline Flush 10 Ml Syr IV 11/10/23 23:59 PRN PRN Sodium Chloride 0 ml 11/10/23 06:00 Normal Saline 10 Ml Vial IJ 11/10/23 23:59 DIRECTED PRN Sterile Water 0 ml 11/10/23 06:00 Water,Injection,Sterile 10 Ml Vial IJ 11/10/23 23:59 DIRECTED PRN PFSH Active Problems Active Problems: Problem Status Onset Code Internal derangement of right knee M23.91 BERENICE (obstructive sleep apnea) G47.33 CHF (congestive heart failure) I50.9 Hyperlipidemia E78.5 CAD (coronary artery disease) I25.10 Medical History Medical History (Updated 11/10/23 @ 07:47 by Myranda Cohn) Cervical stenosis of spinal canal per RAD report 2022, severe stenosis C5-6, C6-7 Idiopathic osteoarthritis Nicotine dependence Former smoker Basal cell carcinoma Surgical History Surgical History History of heart artery stent 2012&2016x2 Tobacco Smoking/Tobacco Use Status: Former Tobacco Use Alcohol Alcohol Intake: current Alcohol intake frequency: holidays/special occasions only Substance Use Substance use: Never Substance use type: does not use Vital Signs and Lab Results Vital Signs Most Recent Vital Signs in EMR: Most Recent Vital Signs Temp Pulse Resp BP Pulse Ox 36.1 C L 68 16 112/77 98 11/10/23 07:30 11/10/23 07:30 11/10/23 07:30 11/10/23 07:30 11/10/23 07:30 Lab Results Blood Type / Crossmatch: No Data to Display Complete Blood Count: No Data to Display Complete Metabolic Panel: No Data to Display Liver Function Panel: No Data to Display Coagulation Panel: No Data to Display Cardiac Panel: No Data to Display Arterial Blood Gas: No Data to Display Venous Blood Gas: No Data to Display Pancreas Panel: No Data to Display Thyroid Panel: No Data to Display Infectious Disease: No Data to Display Blood Cultures: No Data to Display Toxicology Panel: No Data to Display Anesthesia Assessment and Plan Anesthesia History Personal History: No History of Anesthesia Complications Family History: No Family History of Anesthesia Complications Exercise Tolerance Exercise Tolerance: Metabolic Equivalents>4 Pertinent Negatives Pertinent Negatives: No Symptoms of GERD, No Major Pulmonary Symptoms or Complaints and No History of CVA/TIA Cardiac & Pulmonary Exam Cardiac Exam: Normal S1/S2 Heart Sounds Pulmonary Exam: Clear Bilateral Breath Sounds Implantable Cardiac Device Does patient have a Pacemaker or an ICD?: No Airway Exam Known Difficult Airway: No Mallampati Class: 3 Mouth Opening: Normal (> 3cm) Thyromental Distance: Greater than 3 cm Neck Range of Motion: Full ROM Neck Circumference: Normal Teeth Condition: Normal Dentition ASA Classification ASA Score: ASA 3 Emergency Case?: No NPO Status NPO Status: NPO Clears >2 hours, Solids >8 hours Anesthesia Plan Resuscitation Status: Full Code Anesthesia Technique: General Anesthesia Airway Planned: Natural Airway Monitors Used: Standard Monitors
[2023-11-10] MEDS: Lactated Ringers 1,000 ML 80 ML IV (07:52)
[2023-11-10 07:53] VITALS: BMI 35.3
--- NOTE | 2023-11-10 08:08 | W.COLOREPORT ---
Date of service: 11/10/23 Time of Service: 08:09 Colonoscopy Report Procedure Description: PROCEDURES PERFORMED: 1. Colonoscopy with hot snare polypectomy x 2 2. Cold forceps polypectomy x 2 PREOPERATIVE DIAGNOSIS: Screening colonoscopy POSTOPERATIVE DIAGNOSIS: Colorectal polyps, grade 1 internal hemorrhoids SURGEON: Onesimo Lewis MD INDICATION FOR PROCEDURE: The patient is a 67-year-old man who has never had a screening colonoscopy before. He is not having any symptoms. He does not have a family history of colon cancer. FINDINGS: In the ascending colon, two, 2-3 mm sessile polyps were removed with cold forceps technique. In the sigmoid colon a large pedunculated, 15-18 mm polyp was removed in a single piece off of its stalk with hot snare technique. I then resected the base of the polyp stalk as a separate specimen/margin. In the rectum a 3-5 mm pedunculated polyp was removed with hot snare technique. Mild grade 1 internal hemorrhoids. SURVEILLANCE interval/FOLLOW-UP: 3 years. (Will need a flex sig surveillance in 6 months iif any dysplasia present in the polyp) SPECIMENS: Yes EBL: Minimal COMPLICATIONS: None QUALITY of prep: Excellent Procedure in detail: The patient gave written consent and was in agreement with the indications, the potential risks as well as the benefits of the procedure. They were taken to the endoscopy suite and laid in the left lateral decubitus position. A timeout was performed and anesthesia was administered which was tolerated well. I started the procedure. Digital rectal and visual examination was performed and grossly within normal limits. A well-lubricated flexible colonoscope was then introduced and passed without any notable difficulty all the way to the cecum identified by the ileocecal valve and the appendiceal orifice. The scope was then slowly withdrawn with the above-noted findings. The patient tolerated the procedure well and was taken to the PACU in hemodynamically stable condition.
--- NOTE | 2023-11-10 08:09 | W.PM.DSUDISC ---
Date of service: 11/10/23 Time of Service: 08:09 Discharge Plan Disposition Patient Disposition: Home Condition: Good Discharge Details Attending Provider: Raúl Lewis Primary Care Provider: Sarahy Claros Home Meds and New Rx's Prescriptions: No Action omeprazole 20 mg tablet,delayed release (DR/EC) 20 mg PO DAILY bisacodyl [Dulcolax (bisacodyl)] 5 mg tablet,delayed release (DR/EC) 5 mg PO ONCE Qty: 4 0RF Rx Instructions: Take per colonoscopy instructions provided by ordering providers office polyethylene glycol 3350 17 gram/dose powder 17 g PO ONCE Qty: 238 0RF Rx Instructions: Take per colonoscopy instructions provided by ordering providers office aspirin [Adult Low Dose Aspirin] 81 mg tablet,delayed release (DR/EC) 81 mg PO DAILY ibuprofen 400 mg tablet 400 mg PO Q8H lisinopril 5 mg tablet 5 mg PO DAILY atorvastatin [Lipitor] 40 mg tablet 40 mg PO DAILY latanoprost 0.005 % drops 1 drp ophthalmic (eye) QPM Rx Instructions: both eyes, 1 drop at night Discharge Instructions Additional Instructions: FINDINGS: Numerous polyps were found and removed from your colon today. One polyp was quite large/advanced and you may need to have this site reassessed in a few months depending on the pathology results. Ultimately, this stuff is nothing to worry about because this is why we do the colonoscopy - to find these kinds of polyps and remove them. Overall, you need to have a repeat colonoscopy in 3 years for sure. Stand Alone Forms: Anesthesia Discharge Inst.Marina (DSMeek) Activity:: Activity as Tolerated Diet:: As Tolerated
--- NOTE | 2023-11-10 08:20 | BOWEL_PTH ---
PATIENT: James Aquino LOC: [facility] U#:[id number] AGE/SX: 67/M ROOM: RE11/10/[address]: Raúl Lewis : 1955 BED: DIS: 11/10/2023 SPEC #: [id number] RECD: 11/10/23 12:01 STATUS: A[facility]E [facility] #: [id number] ANA MARÍA: 11/10/23 08:[address]: Raúl Lewis DEPT: Surgical Specimen RECD BY: Dina Levy ENTERED: 11/10/23 12:04 SP TYPE: Bowel OTHR DR: Sarahy Claros Tissues: 1 - BIOPSY BOWEL 2 - BIOPSY BOWEL 3 - BIOPSY BOWEL 4 - BIOPSY BOWEL 5 - BIOPSY BOWEL Procedures: GROSS AND MICRO LEVEL 4 Comments: [id number]
[2023-11-10 08:44] VITALS: BP 111/69; PULSE 72; RESP 16; TEMP 36.4; O2SAT 96
--- NOTE | 2023-11-10 08:47 | W.ANESPOSTOP ---
Postoperative Evaluation Date, Time and Location Date Performed: 11/10/23 Time Performed: 08:47 Patient Location: Day Surgery Unit Vital Signs Most Recent Imported Vital Signs: Most Recent Vital Signs Temp Pulse Resp BP Pulse Ox 36.4 C L 72 16 111/69 96 11/10/23 08:44 11/10/23 08:44 11/10/23 08:44 11/10/23 08:44 11/10/23 08:44 Pain Score Most Recent Pain Score: Most Recent Pain Score Pain Level 0 11/10/23 08:44 Assessment Mental Status: Awake (Alert & Oriented to Patient Baseline) Airway and Respiratory Function: Patent airway with normal (patient baseline) respiratory exam Cardiovascular Function: Hemodynamically Stable Hydration Status: Adequately Hydrated Nausea & Vomiting: No Nausea or Vomiting Pain: Pt. Denies Any Pain Peripheral Nerve Block: Patient did not receive a nerve block
[2023-11-10 08:50] VITALS: BP 124/79; PULSE 70; RESP 16; TEMP 36.6; O2SAT 99
== END 2023-11-10 09:10 | disposition home or self-care (01) ==
PROVIDERS: PCP Family Medicine; Visit Provider Student in an Organized Health Care Education/Training Program
PROC: 0DJD8ZZ Inspection of Lower Intestinal Tract, Via Natural or Artificial Opening Endoscopic (ICD-10-PCS; CPT 45378; principal; 2023-11-10 08:15)
DX: Z12.11 Encounter for screening for malignant neoplasm of colon (principal); D12.2 Benign neoplasm of ascending colon; K62.1 Rectal polyp; K64.0 First degree hemorrhoids; I25.10 Atherosclerotic heart disease of native coronary artery without angina pectoris; G47.33 Obstructive sleep apnea (adult) (pediatric); D12.5 Benign neoplasm of sigmoid colon
CPT/HCPCS: 45385; 45380; 00123; 88305; J2704

== ENCOUNTER → 2023-11-26 09:15 | Outpatient (BNVA) | payer MEDICARE, BC, SELFPAY | PROVIDERS: PCP Family Medicine; Referring Provider Family Medicine; Visit Provider Student in an Organized Health Care Education/Training Program | DX: D12.5 Benign neoplasm of sigmoid colon (principal) | CPT/HCPCS: 99213 ==

== ENCOUNTER 2024-05-10 11:28 | Day surgery (SDC) | payer MEDICARE, BC, SELFPAY ==
[2024-05-10 11:48] VITALS: BP 131/85; PULSE 57; RESP 16; TEMP 36.4; O2SAT 98
--- NOTE | 2024-05-10 12:06 | W.SURGCON ---
Date of service: 05/10/24 Time of Service: 12:06 Assessment and Plan Assessment and plan (1) Adenomatous polyp of sigmoid colon: Status: Acute Assessment and plan: 68-year-old man due for an elective surveillance sigmoid scope to ensure no regrowth of the sigmoid polyp. None is expected to be found. Overall plan: Sigmoidoscopy History of Present Illness Narrative: 68-year-old man who had a large pedunculated sigmoid polyp removed 6 months ago. Margins negative but sigmoidoscopy indicated to ensure no regrowth. PFSH All Active Problems Adenomatous polyp of sigmoid colon (Acute) Internal derangement of right knee (Acute) BERENICE (obstructive sleep apnea) (Chronic) CHF (congestive heart failure) (Chronic) Hyperlipidemia (Acute) CAD (coronary artery disease) (Chronic) Medical History Glaucoma Cervical stenosis of spinal canal per RAD report 2022, severe stenosis C5-6, C6-7 Idiopathic osteoarthritis Nicotine dependence Former smoker Basal cell carcinoma Surgical History History of colonoscopy (~11/2023) History of heart artery stent 2011&2016x2 Social History Smoking/Tobacco Use Status: Former Tobacco Use Quit Date: 06/08/73 Smoking risk assessment performed?: Yes Alcohol Intake: current Alcohol Intake frequency: holidays/special occasions only Alcohol type: wine Drug use: Never Substance use type: does not use Housing: house Do you feel safe at home: Yes Do you feel safe in your relationship?: Yes Exam Narrative Exam Narrative: Gen: Non-toxic, comfortable and interactive Neuro: Alert and oriented x3 Psych: Good mood and affect. Good insight and understanding into condition. Chest: Non-labored breathing, no wheezing, no visible shortness of breath. Heart: Regular Results Last Vital Signs Temp 97.5 F L 05/10/24 11:48 Pulse 57 L 05/10/24 11:48 Resp 16 05/10/24 11:48 BP 131/85 05/10/24 11:48 Pulse Ox 98 05/10/24 11:48
--- NOTE | 2024-05-10 12:07 | ROE_ITS ---
Operative Note Operative Note Refer to Anesthesia Record Procedure Description: PROCEDURES PERFORMED: 1. Flexible sigmoidoscopy 2. Cold forceps polypectomy PREOPERATIVE DIAGNOSIS: Sigmoid colon polyp POSTOPERATIVE DIAGNOSIS: Sigmoid colon polyp (novel), grade 1 internal hemorrhoi ds SURGEON: Onesimo Lewis MD INDICATION for procedure: The patient is a 68-year-old man who had a large adenomatous polyp removed from his sigmoid colon 6 months ago. Scope indicated to ensure no regrowth. FINDINGS: There is no evidence of regrowth of the large polyp that was removed. Completely unrelated and presumably a novel growth, a small 2-3 mm hyperplastic?appearing polyp was removed with cold forceps technique from the sigmoid colon. This was NOT felt to represent recurrent growth. Mild grade 1 internal hemorrhoids. SURVEILLANCE interval/FOLLOW-UP: Repeat full complete colonoscopy in 3 years SPECIMENS: yes EBL: Minimal COMPLICATIONS: None QUALITY of prep: Excellent Procedure in detail: The patient gave written consent and was in agreement with the indications, the potential risks as well as the benefits of the procedure. They were taken to the endoscopy suite and laid in the left lateral decubitus position. A timeout was performed and anesthesia was administered which was tolerated well. I started the procedure. Digital rectal and visual examination was performed and grossly within normal limits. A well-lubricated flexible colonoscope was then introduced and passed without any notable difficulty all the way into the descending colon up around the splenic flexure and into the distal transverse colon and then slowly withdrawn. Findings noted above. The patient tolerated the procedure well and was taken to the PACU in hemodynamically stable condition. Date of Procedure: 05/10/24
--- NOTE | 2024-05-10 12:08 | W.PM.DSUDISC ---
Date of service: 05/10/24 Discharge Plan Disposition Patient Disposition: Home Condition: Good Discharge Details Attending Provider: Raúl Lewis Primary Care Provider: Sarahy Claros Home Meds and New Rx's Prescriptions: No Action aspirin [Adult Low Dose Aspirin] 81 mg tablet,delayed release (DR/EC) 81 mg PO DAILY ibuprofen 400 mg tablet 400 mg PO Q8H lisinopril 5 mg tablet 5 mg PO DAILY atorvastatin [Lipitor] 40 mg tablet 40 mg PO DAILY latanoprost 0.005 % drops 1 drp ophthalmic (eye) QPM Rx Instructions: both eyes, 1 drop at night Discharge Instructions Additional Instructions: FINDINGS: No evidence of regrowth of the polyp. This is good news. We did remove a separate and unknown?related small polyp. Nothing to worry about. Repeat a full colonoscopy in 3 years. Stand Alone Forms: Anesthesia Discharge Inst., DSU Post SigmoidoscopyMarina (DSU) Activity:: Activity as Tolerated Diet:: As Tolerated DS: Diagnosis Discharge Diagnosis (1) Adenomatous polyp of sigmoid colon: Status: Acute
[2024-05-10] MEDS: Normal Saline Flush 10 ML SYR IV (12:18)
[2024-05-10] MEDS: Na Phosphate Enema-Adult 133 ML BTL PR (12:27)
[2024-05-10 12:39] VITALS: BMI 34.6
--- NOTE | 2024-05-10 12:39 | ANES.PREOP_ITS ---
General Info Date of Service Date Performed: 05/10/24 Height: 5 ft 9 in Weight: 106.4 kg Body Mass Index (BMI): 34.6 Surgical Procedure: Operation Date: 05/10/24 12:55 Proposed Procedure Side Surgeon p Flexible Sigmoidoscopy Raúl Lewis MD Meds Allergies and Home Medications Allergies Allergy/AdvReac Type Severity Reaction Status Date / Time No Known Allergies Allergy Verified 05/10/24 11:57 Home Medication ?Medication ?Instructions ?Recorded atorvastatin 40 mg tablet (Lipitor) 40 mg PO DAILY 04/29/22 lisinopril 5 mg tablet 5 mg PO DAILY 04/29/22 aspirin 81 mg tablet,delayed 81 mg PO DAILY 05/12/22 release (Adult Low Dose Aspirin) ibuprofen 400 mg tablet 400 mg PO Q8H 05/12/22 latanoprost 0.005 % eye drops 1 drp ophthalmic (eye) QPM 10/23/23 Current Visit Medications: Current Medications Generic Name Dose Route Start Last Admin Trade Name Freq PRN Reason Stop Dose Admin Ringer's Solution 1,000 mls @ 80 mls/hr 05/10/24 06:00 IV 05/10/24 23:59 INFUSION HIMA IV Miscellaneous Supplies 1 each 05/10/24 06:00 Iv Access IV 05/10/24 23:59 DIRECTED HIMA Sodium Biphosphate/Sodium Phosphate 133 ml 05/10/24 06:00 05/10/24 12:27 Na Phosphate Enema-Adult 133 Ml Btl SD 05/10/24 23:59 1 btl PREOP HIMA Administration Sodium Chloride 0 ml 05/10/24 06:00 05/10/24 12:18 Normal Saline Flush 10 Ml Syr IV 05/10/24 23:59 10 ml PRN PRN Administration Sodium Chloride 0 ml 05/10/24 06:00 Normal Saline 10 Ml Vial IJ 05/10/24 23:59 DIRECTED PRN Sterile Water 0 ml 05/10/24 06:00 Water,Injection,Sterile 10 Ml Vial IJ 05/10/24 23:59 DIRECTED PRN PFSH Active Problems Active Problems: Problem Status Onset Code Adenomatous polyp of sigmoid colon Acute D12.5 Internal derangement of right knee Acute M23.91 BERENICE (obstructive sleep apnea) Chronic G47.33 CHF (congestive heart failure) Chronic I50.9 Hyperlipidemia Acute E78.5 CAD (coronary artery disease) Chronic I25.10 Medical History Medical History (Updated 05/10/24 @ 12:44 by Jimmy Cordova CRNA) Glaucoma Cervical stenosis of spinal canal per RAD report 2022, severe stenosis C5-6, C6-7 Idiopathic osteoarthritis Nicotine dependence Former smoker Basal cell carcinoma Surgical History Surgical History History of colonoscopy (~11/2023) History of heart artery stent 2011&2016x2 Tobacco Smoking/Tobacco Use Status: Former Tobacco Use Alcohol Alcohol Intake: current Alcohol intake frequency: holidays/special occasions only Alcohol type: wine Substance Use Substance use: Never Substance use type: does not use Vital Signs and Lab Results Vital Signs Most Recent Vital Signs in EMR: Most Recent Vital Signs Temp Pulse Resp BP Pulse Ox 36.4 C L 57 L 16 131/85 98 05/10/24 11:48 05/10/24 11:48 05/10/24 11:48 05/10/24 11:48 05/10/24 11:48 Lab Results Blood Type / Crossmatch: No Data to Display Complete Blood Count: No Data to Display Complete Metabolic Panel: No Data to Display Liver Function Panel: No Data to Display Coagulation Panel: No Data to Display Cardiac Panel: No Data to Display Arterial Blood Gas: No Data to Display Venous Blood Gas: No Data to Display Pancreas Panel: No Data to Display Thyroid Panel: No Data to Display Infectious Disease: No Data to Display Blood Cultures: No Data to Display Toxicology Panel: No Data to Display Imaging and Studies Imaging and Studies Study information below may be from another EMR and interpreted by another provider. Please see original notes in EMR for more complete details. Echocardiogram Summary: 03/2020: EF 55-60%, No significant valve abnormalities. Hypokinesis of inferiolateral ko. Anesthesia Assessment and Plan Anesthesia History Personal History: No History of Anesthesia Complications Family History: No Family History of Anesthesia Complications Exercise Tolerance Exercise Tolerance: Metabolic Equivalents>4 Pertinent Negatives Pertinent Negatives: No Symptoms of GERD Cardiac & Pulmonary Exam Cardiac Exam: Normal S1/S2 Heart Sounds Pulmonary Exam: Clear Bilateral Breath Sounds Implantable Cardiac Device Does patient have a Pacemaker or an ICD?: No Airway Exam Known Difficult Airway: No Mallampati Class: 2 Mouth Opening: Normal (> 3cm) Thyromental Distance: Less than 3 cm Neck Range of Motion: Full ROM Neck Circumference: Normal Teeth Condition: Normal Dentition ASA Classification ASA Score: ASA 3 Emergency Case?: No NPO Status NPO Status: NPO Clears >2 hours, Solids >8 hours Anesthesia Plan Resuscitation Status: Full Code Anesthesia Technique: General Anesthesia Airway Planned: Natural Airway Monitors Used: Standard Monitors Preoperative Comments:: Pt. has had 2 NH's, both prior to 2014 requiring a total of 3 stents. Pt. reports no cardiac symptoms and recently had echo in [facility] with similar findings to 2020 echo.
--- NOTE | 2024-05-10 13:28 | BOWEL_PTH ---
PATIENT: James Aquino LOC: [facility] U#:[id number] AGE/SX: 68/M ROOM: RE05/10/[address]: Raúl Lewis : 1955 BED: DIS: 05/10/2024 SPEC #: [id number] RECD: 05/10/24 17:37 STATUS: ASHLEE RE #: [id number] ANA MARÍA: 05/10/24 13:[address]: Raúl Lewis DEPT: Surgical Specimen RECD BY: Dina Levy ENTERED: 05/10/24 17:37 SP TYPE: Bowel OTHR DR: Sarahy Claros Tissues: 1 - BIOPSY BOWEL Procedures: GROSS AND MICRO LEVEL 4 Comments: [id number]
[2024-05-10 13:39] VITALS: BP 107/71; PULSE 65; RESP 18; TEMP 36; O2SAT 97
[2024-05-10 14:10] VITALS: BP 110/66; PULSE 52; RESP 18; TEMP 36.2; O2SAT 98
--- NOTE | 2024-05-10 15:07 | W.ANESPOSTOP ---
Postoperative Evaluation Date, Time and Location Date Performed: 05/10/24 Time Performed: 13:50 Patient Location: Day Surgery Unit Vital Signs Most Recent Imported Vital Signs: Most Recent Vital Signs Temp Pulse Resp BP Pulse Ox 36.2 C L 52 L 18 110/66 98 05/10/24 14:10 05/10/24 14:10 05/10/24 14:10 05/10/24 14:10 05/10/24 14:10 Pain Score Most Recent Pain Score: Most Recent Pain Score Pain Level 0 05/10/24 14:10 Assessment Mental Status: Awake (Alert & Oriented to Patient Baseline) Airway and Respiratory Function: Patent airway with normal (patient baseline) respiratory exam Cardiovascular Function: Hemodynamically Stable Hydration Status: Adequately Hydrated Nausea & Vomiting: No Nausea or Vomiting Pain: Pt. Denies Any Pain Peripheral Nerve Block: Patient did not receive a nerve block
== END 2024-05-10 14:26 | disposition home or self-care (01) ==
PROVIDERS: PCP Family Medicine; Visit Provider Student in an Organized Health Care Education/Training Program
PROC: 0DJD8ZZ Inspection of Lower Intestinal Tract, Via Natural or Artificial Opening Endoscopic (ICD-10-PCS; CPT 45330; principal; 2024-05-10 12:45)
DX: K63.5 Polyp of colon (principal); K64.0 First degree hemorrhoids
CPT/HCPCS: 45331; 00123; 88305; J2704

== ENCOUNTER 2024-09-17 08:57 | Emergency (ER) | payer MEDICARE, BC, SELFPAY ==
[2024-09-17 09:02] VITALS: BP 155/88; PULSE 80; RESP 20; O2SAT 98
--- NOTE | 2024-09-17 09:24 | W.ED.GENAD ---
Discharge Plan Disposition Patient Disposition: Home Condition: Good Discharge Details Clinical Impression: Shingles, Herpes zoster infection of thoracic region Primary Care Provider: Sarahy Claros ED Provider: Babak Alvarado Home Meds and New Rx's Prescriptions: New gabapentin [Neurontin] 300 mg capsule 300 mg PO TID Qty: 90 0RF Rx Instructions: On the first day take 1 pill, on the second day take 1 pill twice daily, on the third day and for the remainder of the prescription take 1 pill 3 times a day. capsaicin 0.1 % cream 1 applic topical TID Qty: 60 0RF Rx Instructions: do not wash area for at least 30 min after application valacyclovir 1 gram tablet 1,000 mg PO TID Qty: 21 0RF No Action aspirin [Adult Low Dose Aspirin] 81 mg tablet,delayed release (DR/EC) 81 mg PO DAILY Patient Comments: HASNT TAKEN IN 3-4 DAYS lisinopril 5 mg tablet 5 mg PO DAILY atorvastatin [Lipitor] 40 mg tablet 40 mg PO DAILY latanoprost 0.005 % drops 1 drp ophthalmic (eye) QPM Rx Instructions: both eyes, 1 drop at night acetaminophen 500 mg capsule 500 mg PO QID PRN Discharge Instructions Instructions: Shingles Additional Instructions: At this time your signs and symptoms appear to be clinically consistent with shingles. Please apply the capsaicin cream please take the gabapentin as prescribed. Please take the valacyclovir antiviral as prescribed. These prescriptions have been sent to your pharmacy on file. Please avoid any immunocompromised individuals or individuals to prevent any spread of chickenpox. If you notice any worsening of your symptoms, or any new symptoms such as vomiting, diarrhea, fever, chills, shortness of breath, chest pain, numbness, weakness, or fainting , please return immediately to the emergency department for reevaluation. Please follow up with your primary care provider as soon as possible for reassessment and reevaluation. As always, it was a pleasure participating in your medical care today. Referrals: Sarahy Claros MD [Primary Care Provider] - [facility] General Date/Time Provider Initiated Documentation: 09/17/24 09:19. HPI Narrative: 68-year-old male with a past medical history of congestive heart failure, coronary artery disease, obstructive sleep apnea, who presents today for evaluation of rash on his right chest. Patient states that about 6 to 7 days ago he developed mild achiness in his right back, followed by burning sensation that wraps around the right chest. No exertional dyspnea. No crushing chest pain or heaviness. No shortness of breath, fever or chills. No arm neck or shoulder pain. Pain symptoms and rash is located in the right chest. He admits to a notable burning sensation there now. No new foods or contact irritants. He admits his mild amount of weeping from small vesicles in that dermatomal area. Patient does admit to getting varicella zoster when he was 4 years old, he has not gotten his shingles shot before. No other complaints at this time. No headache or neck pain. His significant other who is at bedside did get a shingles booster 2 years ago. Related Data Home Medications ?Medication ?Instructions ?Recorded ?Confirmed atorvastatin 40 mg tablet (Lipitor) 40 mg PO DAILY 04/29/22 09/17/24 lisinopril 5 mg tablet 5 mg PO DAILY 04/29/22 09/17/24 aspirin 81 mg tablet,delayed 81 mg PO DAILY 05/12/22 09/17/24 release (Adult Low Dose Aspirin) latanoprost 0.005 % eye drops 1 drp ophthalmic (eye) QPM 10/23/23 09/17/24 acetaminophen 500 mg capsule 500 mg PO QID PRN 09/17/24 09/17/24 capsaicin 0.1 % topical cream 1 applic topical TID #60 grams 09/17/24 gabapentin 300 mg capsule 300 mg PO TID #90 caps 09/17/24 (Neurontin) valacyclovir 1 gram tablet 1,000 mg PO TID #21 tabs 09/17/24 Previous Rx's ?Medication ?Instructions ?Recorded capsaicin 0.1 % topical cream 1 applic topical TID #60 grams 09/17/24 gabapentin 300 mg capsule 300 mg PO TID #90 caps 09/17/24 (Neurontin) valacyclovir 1 gram tablet 1,000 mg PO TID #21 tabs 09/17/24 Allergies Allergy/AdvReac Type Severity Reaction Status Date / Time No Known Allergies Allergy Verified 09/17/24 09:04 General Stated Complaint: RashLesion TOY: 4 Exam Narrative Exam Narrative: 1.Const: Well-nourished, Well-developed, appearing stated age 2.Eyes: PERRL, no conjunctival injection, and symmetrical lids. 3.ENT: Atraumatic external nose and ears. Moist MM. Neck: Symmetric, trachea midline, No thyromegaly. 4.CVS: +S1/S2, Peripheral pulses 2+ and equal in all extremities. Brisk capillary refill in all extremities. 5.RESP: Unlabored respiratory effort. Clear to auscultation bilaterally. No wheezes rales or rhonchi 6.GI: Soft, Nontender/Nondistended, No hepatosplenomegaly. No guarding or rebound. 7.MSK: Normocephalic/Atraumatic, Extremities w/o deformity or ttp No cyanosis or clubbing, Normal movement of all extremities 8.Skin: Warm, Dry. Patient demonstrates a vesicular rash over the right chest wall dermatome around the T6. There is variability with some active lesions that are weeping, some crusted lesions, and some vesicular lesions. No bleeding. No other lesions anywhere else. 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 Sensation grossly intact, no focal neurologic deficits. 10.Psych: (AAO) x3. Appropriate mood and affect Course Vital Signs Vital signs: Vital Signs Pulse 80 09/17/24 09:02 Respiratory Rate 20 09/17/24 09:02 Blood Pressure 155/88 H 09/17/24 09:02 Pulse Oximetry 98 09/17/24 09:02 Pulse 80 09/17/24 09:02 Respiratory Rate 20 09/17/24 09:02 Blood Pressure 155/88 H 09/17/24 09:02 Blood Pressure Position Sitting 09/17/24 09:02 Pulse Oximetry 98 09/17/24 09:02 Oxygen Delivery Method Room Air 09/17/24 09:02 Oxygen Flow Rate 0 09/17/24 09:02 Pain Level 4 09/17/24 09:02 Medical Decision Making 68-year-old male with a past medical history of congestive heart failure, coronary artery disease, obstructive sleep apnea, who presents today for evaluation of rash on his right chest. Patient states that about 6 to 7 days ago he developed mild achiness in his right back, followed by burning sensation that wraps around the right chest. No exertional dyspnea. No crushing chest pain or heaviness. No shortness of breath, fever or chills. No arm neck or shoulder pain. Pain symptoms and rash is located in the right chest. He admits to a notable burning sensation there now. No new foods or contact irritants. He admits his mild amount of weeping from small vesicles in that dermatomal area. Patient does admit to getting varicella zoster when he was 4 years old, he has not gotten his shingles shot before. No other complaints at this time. No headache or neck pain. His significant other who is at bedside did get a shingles booster 2 years ago. Exam demonstrates a well-appearing male with evidence of a rash over the T6 dermatome on the right chest, no active bleeding. No history of HIV or immunocompromise status. Signs and symptoms appear clinically consistent with herpes zoster/shingles. I do feel that he would be a good candidate for treatment. We will start valacyclovir, we will give prescription for capsaicin and gabapentin. Otherwise stable, no concerning abnormalities otherwise. Although the patient has had symptoms for about 5 to 6 days I do feel he would be a good candidate for treatment. We will start valacyclovir, abstention and gabapentin. Recommend avoidance of certain at risk groups. Discussed red flags for which to return. I have extensively reviewed the treatment plan and discharge instructions with the patient and their family. I have addressed all patient concerns at this time. The patient and family was made aware of what symptoms to monitor for that would warrant a return to the emergency department. Discussed the plan with the patient and family, they demonstrate verbal understanding and agreement with our assessment and plan at this time. The documentation in this chart was dictated using [employer] dictation software. Please excuse any dictation errors. Quality:SDOH Health Related Social Needs: No Data to Display PFSH All Active Problems (Updated 09/17/24 @ 09:34 by Babak Alvarado DO) Herpes zoster infection of thoracic region (Acute) Shingles (Acute) Adenomatous polyp of sigmoid colon (Acute) Internal derangement of right knee (Acute) BERENICE (obstructive sleep apnea) (Chronic) CHF (congestive heart failure) (Chronic) Hyperlipidemia (Acute) CAD (coronary artery disease) (Chronic) RCA STEMI prior to 2019 Medical History (Updated 09/17/24 @ 09:34 by Babak Alvarado DO) Glaucoma Cervical stenosis of spinal canal per RAD report 2022, severe stenosis C5-6, C6-7 Idiopathic osteoarthritis Nicotine dependence Former smoker Basal cell carcinoma Surgical History (Updated 05/13/24 @ 09:11 by Jocy Paz) Hx of flexible sigmoidoscopy (~05/2024) History of colonoscopy (~11/2023) History of heart artery stent [id number] Social History Smoking/Tobacco Use Status: Former Tobacco Use Quit Date: 06/08/73 Smoking risk assessment performed?: Yes Alcohol Intake: current Alcohol Intake frequency: holidays/special occasions only Alcohol type: wine Drug use: Never Substance use type: does not use Housing: house Do you feel safe at home: Yes Do you feel safe in your relationship?: Yes
[2024-09-17] MEDS: valACYclovir 500 MG TAB 1000 MG PO (09:26)
[2024-09-17 09:27] VITALS: BP 160/116; PULSE 72; O2SAT 98
== END 2024-09-17 09:34 | disposition home or self-care (01) ==
LOC: ER 09:35
PROVIDERS: Emergency Provider Student in an Organized Health Care Education/Training Program; PCP Family Medicine
DX: B02.9 Zoster without complications (principal)
CPT/HCPCS: 99283